=== PATIENT | female | born 1995 | race Caucasian/White ===

== ENCOUNTER → 2016-11-20 | Day surgery (SDC) | payer BC, OTHER ==
[~2016-11-20] MED LIST: CIPR500T4 PO; KETOROLAC TROMETHAMINE 30 MG/ML (IVP) VIAL IV PUSH ONE; LACTATED RINGER'S 1000 ML INJ 1,000 ML ONE; LIDOCAINE 1%/EPINEPHrine 1:100,000 SOLN 20 ML VIAL ONE; LORTA5 PO; MIDAZOLAM HCL 2 MG/2 ML VIAL ONE; ONDANSETRON HCL 4 MG/2 ML VIAL IV PUSH ONE; PROPOFOL 200 MG/20 ML AMP IV ONE; SMZ-800T PO; ceFAZolin INJ 1,000 MG VIAL ONE; oxyCODONE/ACETAMINOPHEN 5 MG/325 MG TAB ONE
--- NOTE | 2016-11-21 19:43 | MP ---
cc: DARCY WEBER M.D. DATE OF SURGERY: 11/20/2016 PREOPERATIVE DIAGNOSIS Missed at 8 weeks. POSTOPERATIVE DIAGNOSIS 1. Missed at 8 weeks. 2. Postop day number 0. INDICATIONS Jacqueline Myers is a 21-year-old 1, para 0-0-1-0 who was seen and evaluated as a new OB patient in the office approximately three weeks ago. She had ultrasound at that time that confirmed a viable intrauterine at 8 weeks gestation. She had followup scan scheduled on Thursday of this week which showed no progression of the , no cardiac activity, was still measuring only 8 weeks gestation but should have been more than 11 weeks. The patient desired active management and so she was scheduled for procedure. PROCEDURE PERFORMED Exam under anesthesia, cervical dilation and curettage with suction. SURGEON Darcy Weber MD ANESTHESIA General using LMA. COMPLICATIONS None. COUNTS Counts of sponge, lap, instrument and needle are correct x2 at the conclusion of the procedure. ESTIMATED BLOOD LOSS 50 mL. IV FLUID REPLACEMENT 700 mL. URINE OUTPUT None. The patient had voided prior to the procedure. PROPHYLAXIS Ancef 2 grams IV was given preoperatively. INTRAOPERATIVE FINDINGS Included anteflexed 9 week size uterus, normal cervix that was closed, long and not dilated. No vaginal bleeding was noted. Normal external female genitalia. SPECIMEN Products of conception. PROCEDURE IN DETAIL After reviewing the informed consent, the patient was taken to the operating suite where a timeout was performed to identify the patient, the planned procedure, any known allergies to drugs or drug products. The patient was then placed in the dorsal supine position and general anesthesia using LMA was administered without difficulty and found to be adequate. The patient was then gently elevated into a high lithotomy position in [facility] stirrups. Exam under anesthesia was performed with results as listed above. A sterile speculum was placed vaginally. The cervix was visualized, grasped on the anterior lip with a single-tooth tenaculum. A paracervical block was performed with 10 mL of 1% lidocaine with epinephrine. The uterus was then sounded to 11 cm. Progression of cervical dilators were used to accommodate up to a #8-Vietnamese suction curette. Suction curette was then introduced, rotated multiple times with good clearance of uterine contents, suction was removed. A sharp curette was introduced and sharp curettage was then performed until a good cry was felt in all areas. Additional pass of the suction was performed with no additional visualized products seen in the suction tubing. The suction device was removed. Tenaculum was removed from the anterior lip of the cervix. Sponge stick was used for hemostasis. Speculum and sponge stick were removed from the vagina and procedure concluded at this point. The patient was brought back into dorsal supine position. She was awoken from anesthesia without complication. Procedure concluded at that point. DISPOSITION The patient was discharged to home today. She has office followup in 1-2 weeks. She is aware of pain and bleeding precautions. MD BINH Fay/GILL /12:31 PM /7:23 PM MTDTala
== END | disposition home or self-care (01) ==
LOC: ESDC 10:40
PROVIDERS: ATTEND Obstetrics & Gynecology
DX: O02.1 Missed abortion (principal); Z3A.08 8 weeks gestation of pregnancy
CPT/HCPCS: 01965; 59820; 88305; J0690; J1885; J2250; J2405; J3010; J7120; 88323; 88342

== ENCOUNTER → 2017-06-29 | Day surgery (SDC) | payer BC ==
[~2017-06-29] MED LIST changes: +FERRIC SUBSULFATE 8 ML TOP SOLN TOPICAL ONE; +IODINE (STRONG-LUGOLS) SOLN 20 DROP/1 ML BTL TOPICAL ONE; -LIDOCAINE 1%/EPINEPHrine 1:100,000 SOLN 20 ML VIAL ONE; +LIDOCAINE HCL 1% 50 ML VIAL ONE; -ceFAZolin INJ 1,000 MG VIAL ONE
--- NOTE | 2017-06-30 22:15 | MP ---
cc: DARCY MOSQUERA M.D. DATE OF SURGERY 06/29/2017 PREOPERATIVE DIAGNOSIS Cervical intraepithelial neoplasia grade 3. POSTOPERATIVE DIAGNOSES 1. Cervical intraepithelial neoplasia grade 3. 2. Postoperative day number zero. INDICATIONS Lorenza Myers is a 21-year-old 1, para 0-0-1-0 who was seen and evaluated for her annual wellness visit and found to have high-grade Pap smear. She was taken for office colposcopy with biopsy confirmed SCOUT 3 lesion. ECC was negative. She was scheduled for excisional procedure based on these results. She has very poor tolerance of office colposcopy and desired a LEEP in the operating room. PROCEDURE PERFORMED 1. Exam under anesthesia. 2. Cervical LEEP. 3. Endocervical curettage. SURGEON Darcy Mosquera MD. STATION MASTER Tashi Enrique MS-3. ANESTHESIA General using LMA. ESTIMATED BLOOD LOSS 25 ml. URINE OUTPUT None. The patient voided prior to the procedure and urethra was not instrumented intraoperatively. IV FLUIDS REPLACEMENT 400 ml. SPECIMEN 1. Cervical LEEP specimen. 2. Endocervical curetting. FINDINGS Smooth 3 cm width mobile cervix. After application of Lugol's solution acetowhite changes seen globally throughout the transformation zone. Uterus anteflexed approximately five to six weeks' size. No adnexal masses appreciated on bimanual exam. Normal external female genitalia. COMPLICATIONS None. COUNTS Of sponge, lap, instrument and needle are correct x2 at the conclusion of the procedure. PROPHYLAXIS SCDs were on and functioning throughout the entire case. PROCEDURE IN DETAIL After reviewing the informed consent the patient was taken to the operating suite where a time-out was performed to identify the patient, planned procedure and any known allergies to drugs or drug products. The patient was then placed in dorsal supine position and general anesthesia was administered without difficulty and found to be adequate. The patient was gently elevated into high lithotomy position in candy cane stirrups. Exam under anesthesia was performed with results as listed above. The perineum was prepped and draped in normal sterile fashion. Sterile coated speculum was placed vaginally. Cervix was grasped on the anterior lip with a single-tooth tenaculum. Paracervical block using 10 mL of 1% lidocaine was then used. Lugol's solution was applied with findings as listed above. Suction device was attached to coated speculum. Kari core type LEEP electrode was then activated making a circumferential biopsy of the entire transformation zone and a portion of the endocervical canal. Specimen was removed vaginally with long smooth pickups. Hemostasis was ensured with Bovie cautery and Monsel solution. Tenaculum was removed as was the speculum. The patient tolerated the procedure well. The procedure concluded at this point. The patient was brought back in a dorsal supine position. She was awoken from anesthesia without complication. DISPOSITION Patient will be discharged to home today with office followup in 2 weeks. She is aware of postoperative precautions including pelvic rest during this time frame. MD BINH Fay/JANNETH /12:14 PM /10:04 PM ALBA
== END | disposition home or self-care (01) ==
LOC: ESDC 10:58
PROVIDERS: ATTEND Obstetrics & Gynecology
DX: R87.613 High grade squamous intraepithelial lesion on cytologic smear of cervix (HGSIL) (principal)
CPT/HCPCS: 00940; 57522; 88305; 88307; J1885; J2250; J2405; J3010; J7120